=== PATIENT | female | born 1955 | race Caucasian/White ===

== ENCOUNTER → 2016-09-12 | Outpatient (CLI) | payer MEDICARE, OTHER ==
[2015-08-31 08:50] VITALS: BP 96/54
[~2016-09-12] MED LIST: AMIT75TA PO; AMLO5TAB2 PO; CHOL100013 PO; ESOM40CA PO; HYDR12.58 PO; LEVO125T5 PO; MELO15TA23 PO; METH10TA2 PO; POTA10TA12 PO; PROAIR HFA8.5 GM INH; PROP80CA3 PO; SIMV40TA3 PO; TIOT18CA IH; TOPI100T8 PO
--- NOTE | 2016-09-12 14:42 | RAD ---
Renal ultrasound, 09/12/2016: History: Chronic kidney disease The right kidney measures 9.7 cm in length while the left kidney measures 10.9 cm. There is no evidence of hydronephrosis or a renal mass. The renal parenchymal echogenicity is within normal limits. The partially filled urinary bladder is unremarkable. IMPRESSION: No significant renal abnormality is detected.
== END | disposition home or self-care (01) ==
LOC: US 10:25
PROVIDERS: ATTEND Internal Medicine Nephrology
DX: N18.3 Chronic kidney disease, stage 3 (moderate) (principal)
CPT/HCPCS: 76770

== ENCOUNTER → 2018-09-12 | Outpatient (CLI) | payer BC ==
[2015-08-31 08:50] VITALS: BP 96/54
[~2018-09-12] MED LIST changes: +ALBU2.5V8 INH; +AMLO5TAB10 PO; -AMLO5TAB2 PO; +IOHEXOL 240 MG/ML 50ML VIAL. PO ONE; +IOHEXOL 300 MG/ML 100ML VIAL. IV ONE; -PROAIR HFA8.5 GM INH
[2018-09-12 08:18] LABS: CREATININE 1.2 mg/dL (0.6-1.0); GFR 45.7
--- NOTE | 2018-09-12 09:57 | RAD ---
CT of the abdomen and pelvis with contrast, 09/12/2018: HISTORY: Abdominal pain, hepatitis C with cirrhosis Multidetector CT imaging was performed following oral and IV administration of contrast. Comparison is made to a study from 08/06/2015. The gallbladder is surgically absent. No hepatic mass or bile duct dilatation is seen. The pancreas is unremarkable. The spleen has increased in size now measuring 13 cm in length. It measured 10 cm on the previous study. No renal or adrenal abnormality is detected. The abdominal aorta is unremarkable. A portocaval lymph node is at the upper limits of normal in size. No definite abdominal or pelvic adenopathy is evident. The uterus is surgically absent. The bowel loops are not dilated. The appendix is unremarkable. The small bowel loops are unremarkable. There is a small hiatal hernia. Previously seen ascites has resolved. No free air is evident in the abdomen. IMPRESSION: 1. Borderline splenomegaly has developed since 08/06/2015. 2. Small hiatal hernia. 3. No acute abdominal or pelvic abnormality is detected. PQRS Compliance Statement: One or more of the following individualized dose reduction techniques were utilized for this examination: 1. Automated exposure control 2. Adjustment of the mA and/or kV according to patient size 3. Use of iterative reconstruction technique Electronically signed by: Yoel Shah MD (09/12/2018 9:54 AM) [facility]
== END | disposition home or self-care (01) ==
LOC: CT 07:42
PROVIDERS: ATTEND Internal Medicine Gastroenterology
DX: K44.9 Diaphragmatic hernia without obstruction or gangrene (principal); R16.1 Splenomegaly, not elsewhere classified; B19.20 Unspecified viral hepatitis C without hepatic coma; K74.60 Unspecified cirrhosis of liver; Z90.49 Acquired absence of other specified parts of digestive tract; Z90.710 Acquired absence of both cervix and uterus; Z86.19 Personal history of other infectious and parasitic diseases
CPT/HCPCS: 36415; 74177; 82565; 84520; Q9966; Q9967

== ENCOUNTER → 2018-09-30 | Outpatient (CLI) | payer BC ==
[2015-08-31 08:50] VITALS: BP 96/54
[~2018-09-30] MED LIST changes: -IOHEXOL 240 MG/ML 50ML VIAL. PO ONE; -IOHEXOL 300 MG/ML 100ML VIAL. IV ONE
--- NOTE | 2018-09-30 17:59 | RAD ---
Examination: GASTRIC EMPTYING STUDY History: Nausea and abdominal pain Comparison/Correlation: None Findings: 2.1 mCi technetium 99m sulfur colloid meal was orally administered for gastric emptying study. Imaging was performed in anterior and posterior projections. Gastric retention at 1 hour is 53 percent. Gastric retention at 2 hours is 15 percent. It is 0 percent by 3 hours. The T 1 /2 is 71 minutes. Impression: Gastric emptying is within normal limits. No gastric emptying delay. Electronically signed by: Nguyễn Corona MD (09/30/2018 5:56 PM) [facility]
== END | disposition home or self-care (01) ==
LOC: NM 07:07
PROVIDERS: ATTEND Internal Medicine Gastroenterology
DX: R11.0 Nausea (principal); R10.9 Unspecified abdominal pain
CPT/HCPCS: 78264; A9541

== ENCOUNTER → 2018-12-11 | Outpatient (CLI) | payer BC ==
[2015-08-31 08:50] VITALS: BP 96/54
--- NOTE | 2018-12-14 17:48 | RAD ---
DATE: 12/11/2018 EXAM: MAMMO ALEXANDRE SCREENING BILATERAL HISTORY: Routine screening. Bilateral prior biopsies. COMPARISON: 07/06/2013 mammographic exam This study was interpreted with the benefit of Computerized Aided Detection (CAD). Breast Density: SCATTERED The breast parenchyma shows scattered fibroglandular densities. Breast parenchyma level B. FINDINGS: No suspicious calcifications, masses, or distortion in the interval. IMPRESSION: Stable BI-RADS CATEGORY: 1 NEGATIVE RECOMMENDED FOLLOW-UP: 12M 12 MONTH FOLLOW-UP PQRS compliance statement: Patient information was entered into a reminder system with a target due date in one year for the next mammogram. Mammography is a sensitive method for finding small breast cancers, but it does not detect them all and is not a substitute for careful clinical examination. A negative mammogram does not negate a clinically suspicious finding and should not result in delay in biopsying a clinically suspicious abnormality. "Our facility is accredited by the [employer] Mammography Program."
== END | disposition home or self-care (01) ==
LOC: MAMMO 15:19
PROVIDERS: ATTEND Physician Assistant Medical
DX: Z12.31 Encounter for screening mammogram for malignant neoplasm of breast (principal)
CPT/HCPCS: 77063; 77067

== ENCOUNTER → 2019-12-23 | Outpatient (CLI) | payer BC ==
[2015-08-31 08:50] VITALS: BP 96/54
[~2019-12-23] MED LIST changes: -POTA10TA12 PO; +POTASSIUM CHLO10 ME1 PO; +SIMV40TA18 PO; -SIMV40TA3 PO
--- NOTE | 2019-12-23 16:20 | KCIC ---
Study: CR FOOT RIGHT 2V Indication: Foot pain. Recent fall. Comparison: None. Findings: The tarsometatarsal joints are difficult to closely evaluate without an oblique view. Taking this into consideration no acute fracture is seen at this location. On the AP view, small focus of mineralization along the lateral margin of the calcaneocuboid joint. Osseous irregularity at the medial fourth proximal phalangeal base is more suggestive of prior trauma then degenerative . Advanced arthrosis at the posterior subtalar joint. Prominent os trigonum. There appears to be an os tibiale externum. Trace chronic mineralization at the Achilles insertion and proximal plantar fascia. Impression: 1. On the AP view, small focus of mineralization lateral to the calcaneocuboid joint could be degenerative/chronic or an ossicle though an avulsion fracture is not excluded. Recommend correlation for a recent inversion injury and pinpoint tenderness at this location. 2. Chronic findings as above. Electronically signed by: DEMETRI BUSTILLO MD (12/23/2019 4:17 PM) [id number]
--- NOTE | 2019-12-23 16:23 | KCIC ---
Bone mineral density exam History: Postmenopausal, diabetes, takes calcium supplement Comparison: None Findings: Bone mineral density examination utilizing DEXA was performed. Left hip bone mineral density of 0.848 g/cm2 corresponds with a T score -0.8, Z score 0.3. The bone mineral density of the lumbar spine was 1.073 g/cm2 which corresponds with a T-score of 0.2, Z score 1.8. By World Congress on Osteoporosis criteria, a T score of 0 to-1 SD is considered to be within normal limits. A T score of -1 to -2.5 SD is considered osteopenia. A T score less than -2.5 SD is considered osteoporosis Impression: 1. There is normal bone density of the left hip and lumbar spine. However, bone mineral density of the lumbar spine may be artificially elevated due to the presence of degenerative change and scoliosis. Electronically signed by: Maykel Olson MD (12/23/2019 4:21 PM) [id number]
--- NOTE | 2019-12-23 17:16 | KCIC ---
Bilateral digital screening mammograms with 3-D tomosynthesis: Reason for examination: Routine screening. Comparison is made to previous studies dated 12/11/2018 and 07/06/2013. Bilateral mammograms in CC and oblique projections were obtained with 2-D imaging and 3-D tomosynthesis imaging on a Siemens Inspiration unit and reviewed on the workstation. Interpretation was made with the benefit of CAD. The skin and nipples show no abnormalities. No abnormal axillary lymph nodes are seen. The breast parenchyma shows scattered fatty and fibroglandular density. (Breast density: Category B.) There continues to be a small circumscribed nodule posterior laterally in the left breast. There are no new dominant masses, suspicious calcifications or architectural distortion. Benign calcifications are present. Impression: No evidence of malignancy. Recommend routine screening. BI-RAD Category 2: Benign. "Our facility is accredited by the [employer] Mammography Program." This patient's information has been entered into a reminder system for the patient to be notified with the results of her examination and a target date for the next mammogram. Electronically signed by: Sandra Rosenthal MD (12/23/2019 5:12 PM) [id number]
== END | disposition home or self-care (01) ==
LOC: KCIC DEXA 13:08
PROVIDERS: ATTEND Physician Assistant Medical
DX: Z12.31 Encounter for screening mammogram for malignant neoplasm of breast (principal); N64.89 Other specified disorders of breast; M47.816 Spondylosis without myelopathy or radiculopathy, lumbar region; M41.86 Other forms of scoliosis, lumbar region; M19.071 Primary osteoarthritis, right ankle and foot; Z78.0 Asymptomatic menopausal state
CPT/HCPCS: 73620; 77063; 77067; 77080

== ENCOUNTER → 2021-04-13 | Outpatient (CLI) | payer BC ==
[2015-08-31 08:50] VITALS: BP 96/54
[~2021-04-13] MED LIST changes: +AMLO-186 PO; -AMLO5TAB10 PO; +METH-572 PO; -METH10TA2 PO
--- NOTE | 2021-04-13 11:59 | RAD ---
BILATERAL SCREENING MAMMOGRAM History: Routine screening. Comparison: Most recently on 12/23/2019. Technique: Routine 2D and 3D tomosynthesis digital mammogram views were obtained bilaterally. Interpr etation was assisted with the use of computer-aided detection. Findings: Breast Tissue Density B : There are scattered areas of fibroglandular density. There are no dominant masses, suspicious microcalcifications, or architectural distortion. IMPRESSION: No mammographic evidence of malignancy. Recommend routine screening mammography in one year. BI-RADS category 1: Negative. Patient information is entered into the reminder system with a target due date for the next screening mammogram. "Our facility is accredited by the [employer] Mammography Program." Electronically signed by: DEMETRI BUSTILLO MD (04/13/2021 11:57 AM) [id number]
== END ==
LOC: MAMMO 10:12
PROVIDERS: ATTEND Physician Assistant Medical
DX: Z12.31 Encounter for screening mammogram for malignant neoplasm of breast (principal)
CPT/HCPCS: 77063; 77067